=== PATIENT | male | born 1940 ===

== ENCOUNTER 2021-06-29 16:22 | Outpatient (CLI) | payer SELFPAY | END 2021-06-29 16:23 | disposition home or self-care (01) | LOC: RPT 16:27 | PROVIDERS: Visit Provider Family Medicine ==

== ENCOUNTER 2021-06-29 21:08 | Outpatient (REF) | payer SELFPAY ==
[2021-06-29 21:38] LABS: Hemoglobin A1C 5.7 % (<5.7)
[2021-06-29 21:49] LABS: ALT 15 U/L (16-63); AST 17 U/L (15-37); Alkaline Phosphatase 76 U/L (46-116); Anion Gap 6.3 mmol/L (3-11); BUN 18 mg/dL (7-18); Bilirubin, Total 0.3 mg/dL (0.2-1.0); CO2 30.7 mmol/L (21.0-32.0); CREATININE 1.3 mg/dL (0.70-1.30); Calcium 8.7 mg/dL (8.5-10.1); Calculated LDL 129 mg/dL (<100); Chloride 106 mmol/L (98-107); Cholesterol 210 mg/dL (<200); Estimated GFR 52.72 (mL/min/1.73m2); Glucose 94 mg/dL (74-106); HDL Cholesterol 45 mg/dL (40-60); Potassium 4.1 mmol/L (3.5-5.1); Sodium 143 mmol/L (136-145); TSH 0.52 uIU/mL (0.36-3.74); Total Protein 7.3 g/dL (6.4-8.2); Triglyceride 183 mg/dL (<150)
== END 2021-06-29 21:09 | disposition home or self-care (01) ==
LOC: LBN 21:08
PROVIDERS: Visit Provider Family Medicine
DX: E03.9 Hypothyroidism, unspecified (principal); E78.5 Hyperlipidemia, unspecified; F20.0 Paranoid schizophrenia
CPT/HCPCS: 80053; 80061; 83036; 84443

== ENCOUNTER 2021-10-05 15:59 | Outpatient (REF) | payer MEDICARE, MEDICAID, SELFPAY ==
[2021-10-06 01:11] LABS: COVID-19 RT-PCR UVMMC Result Negative (Negative)
== END 2021-10-05 16:00 | disposition home or self-care (01) ==
LOC: LBN 15:59
PROVIDERS: Visit Provider Family Medicine
DX: Z20.822 Contact with and (suspected) exposure to COVID-19 (principal)
CPT/HCPCS: U0003; U0005